=== PATIENT | female | born 1950 | race Caucasian/White ===

== ENCOUNTER 2016-11-11 18:39 | Emergency (ER) | payer MEDICARE, OTHER ==
--- NOTE | ~2016-11-11 | CR229 ---
[facility] A Service of [facility] RADIOLOGY TEXT RESULTS PATIENT: IRLANDA WORLEY LOCATION: [place] : 50 UNIT #: [id number] AGE: [address]: Jone Phan MD SEX: F ORDER DR: [id number] [facility] [address] [place], [place] [address] [id number] MR#: [id number] Acc #: [id number] NAME: IRLANDA WORLEY : 1950 SEX: F STUDY DATE/TIME: 11/11/2016 17:06 UNIT: [facility] ROOM: STUDY DESCRIPTION: CR Shoulder Min 2 View Lt Attending Physician: Er Doctor Generic Referring Physician: Primary Care Physician No Ordering Physician: Jone Phan M.D. Primary Care Physician: No Primary Care Physician MEDICAL IMAGING REPORT This report is preliminary unless electronic signature is present EXAM Left shoulder 3 views, 11/11/2016 HISTORY Left shoulder pain status post fall today. FINDINGS 3 views of the left shoulder demonstrate a left humeral prosthesis. There is anterior inferior dislocation of the humeral component of the prosthesis relative to the glenoid. Additionally on the anterior view, there is an oblique fracture through the medial cortex of the proximal humeral diaphysis. The bones are osteopenic. The left acromioclavicular joint is intact. There is no soft tissue abnormality. IMPRESSION 1. Left humeral prosthesis. There is anterior inferior dislocation of the humeral component of the prosthesis relative to the glenoid. 2. On the anterior view there is an oblique nondisplaced fracture through the medial cortex of the proximal left humeral diaphysis. Dictated by... Harvey Huston M.D. THIS IS AN ELECTRONICALLY VERIFIED REPORT Harvey Huston M.D. at 11/12/2016 4:19 PM STONE/zina TD: 11/11/2016 23:59 JOB #: [id number] [facility] A Service of [facility] RADIOLOGY TEXT RESULTS PATIENT: IRLANDA WORLEY LOCATION: [place] : 50 UNIT #: [id number] AGE: [address]: Jone Phan MD SEX: F ORDER DR: MEDICAL IMAGING REPORT COPY
--- NOTE | ~2016-11-11 | CT71 ---
[facility] A Service of [facility] RADIOLOGY TEXT RESULTS PATIENT: IRLANDA WORLEY LOCATION: [facility] : 50 UNIT #: [id number] AGE: [address]: Jone Phan MD SEX: F ORDER DR: [id number] [facility] [address] [place], [place] [address] [id number] E MR#: [id number] Acc #: [id number] NAME: IRLANDA WORLEY : 1950 SEX: F STUDY DATE/TIME: 11/11/2016 16:50 UNIT: [facility] ROOM: STUDY DESCRIPTION: CT Head Wo Contrast Attending Physician: Er Doctor Angie Referring Physician: Primary Care Physician No Ordering Physician: Jone Phan M.D. Primary Care Physician: Primary Care Physician No MEDICAL IMAGING REPORT This report is preliminary unless electronic signature is present EXAM Head CT, 11/11 INDICATIONS Patient fell at home today before dialysis. Patient has subsequent headache and vomiting. Pain is 6/10. FINDINGS Axial images were obtained from the base to the vertex without contrast. Comparison made with 08/28/2015. This CT exam was performed with one or more of the following radiation dose reduction techniques: Automatic exposure control, adjustment of mA and/or kV according to patient size, and iterative reconstruction. Again seen is generalized atrophy. Ventricular size and configuration remain normal. No acute infarct or hemorrhage is seen and there are no masses. Atherosclerotic calcifications are present in the carotid siphons and vertebral arteries. There are no skull fractures. There is an incomplete posterior osseous ring of C1, which is presumably congenital or developmental. IMPRESSION No acute intracranial abnormality. No skull fracture. Dictated by... Braden Yanes Jr., M.D. THIS IS AN ELECTRONICALLY VERIFIED REPORT Braden Yanes Jr., M.D. at 11/12/2016 3:49 PM RLK/rosalba TD: 11/11/2016 22:49 [facility] A Service [facility] RADIOLOGY TEXT RESULTS PATIENT: IRLANDA WORLEY LOCATION: [facility] : 50 UNIT #: [id number] AGE: [address]: Jone Phan MD SEX: F ORDER DR: JOB #: [id number] MEDICAL IMAGING REPORT COPY
--- NOTE | ~2016-11-11 | CR72 ---
[facility] A Service of [facility] RADIOLOGY TEXT RESULTS PATIENT: IRLANDA WORLEY LOCATION: [facility] : 50 UNIT #: [id number] AGE: [address]: Jone Phan MD SEX: F ORDER DR: [id number] [facility] [address] [place], [place] [address] [id number] E MR#: [id number] Acc #: [id number] NAME: IRLANDA WORLEY : 1950 SEX: F STUDY DATE/TIME: 11/11/2016 17:06 UNIT: [facility] ROOM: STUDY DESCRIPTION: CR Chest Single View Portable Attending Physician: Er Doctor Generic Referring Physician: Primary Care Physician No Ordering Physician: Jone Phan M.D. Primary Care Physician: No Primary Care Physician MEDICAL IMAGING REPORT This report is preliminary unless electronic signature is present EXAM Portable chest, 11/11/2016 HISTORY Chest pain and shortness of breath status post fall today. Benign essential hypertension. FINDINGS The heart is normal in size. Thoracic aorta is minimally calcified. Exam is somewhat limited by patient rotation. There is discoid atelectasis at the lung bases with poor inspiratory result. The lungs are otherwise clear. There are no pleural effusions. Left shoulder dislocation is better demonstrated on the plain film radiographs of the left shoulder. IMPRESSION 1. No active pulmonary disease. 2. Left shoulder dislocation is better demonstrated on the plain film radiographs of the left shoulder. Dictated by... Harvey Huston M.D. THIS IS AN ELECTRONICALLY VERIFIED REPORT Harvey Huston M.D. at 11/12/2016 4:19 PM KRT/zina TD: 11/12/2016 00:01 JOB #: [id number] MEDICAL IMAGING REPORT COPY
--- NOTE | ~2016-11-11 | CR156 ---
[facility] A Service of [facility] RADIOLOGY TEXT RESULTS PATIENT: IRLANDA WORLEY LOCATION: [facility] : 50 UNIT #: [id number] AGE: [address]: HANNAH Adams Doctor SEX: F ORDER DR: [id number] [facility] [address] [place], [place] [address] [id number] E MR#: [id number] Acc #: [id number] NAME: IRLANDA WORLEY : 1950 SEX: F STUDY DATE/TIME: 11/11/2016 19:08 UNIT: [facility] ROOM: STUDY DESCRIPTION: CR Humerus Min 2 View Lt Attending Physician: Er Doctor Angie Referring Physician: Primary Care Physician No Ordering Physician: Jone Phan M.D. Primary Care Physician: Primary Care Physician No MEDICAL IMAGING REPORT This report is preliminary unless electronic signature is present EXAM Left humerus, 11/11/2016 INDICATIONS 66-year-old female with pain and weakness, cannot mote the arm, fell today. TECHNIQUE 2 views of the left humerus. No comparisons. FINDINGS The patient is status post total left shoulder replacement. The appearance is abnormal, demonstrating apparent dislocation of the humeral component from the bony glenoid component. The bones are osteoporotic. No distinct humerus fracture identified. There is degenerative change of the AC joint. IMPRESSION 1. Abnormal examination demonstrating an apparent dislocation of the humeral component from the bony glenoid component of the shoulder arthroplasty appliances. No humerus fracture identified. STAT * RESULT Dictated by... Tom Escobar M.D. THIS IS AN ELECTRONICALLY VERIFIED REPORT Tom Escobar M.D. at 11/11/2016 11:27 PM AIDA/rosalba TD: 11/11/2016 20:42 [facility] A Service of [facility] RADIOLOGY TEXT RESULTS PATIENT: IRLANDA WORLEY LOCATION: [facility] : 50 UNIT #: [id number] AGE: [address]: Angie, HANNAH Doctor SEX: F ORDER DR: JOB #: [id number] MEDICAL IMAGING REPORT COPY
--- NOTE | ~2016-11-11 | EKG ---
PATIENT: IRLANDA WORLEY UNIT #: [id number] Ventricular Rate: 65 BPM Atrial Rate: 65 BPM P-R Interval: 180 ms QRS Duration: 112 ms Q-T Interval: 432 ms QTC Calculation(Bezet): 449 ms P [place]: 29 degrees Calculated R [place]: 18 degrees Calculated T [place]: 37 degrees Diagnosis Line: Normal sinus rhythm Diagnosis Line: Low voltage QRS Diagnosis Line: Non-specific intra-ventricular conduction delay Diagnosis Line: Borderline ECG Diagnosis Line: When compared with ECG of 04-SEP-2016 11:11, Diagnosis Line: No significant change was found Diagnosis Line: Confirmed by DILMA HARDEN MD ([id number]) on Diagnosis Line: 11/12/2016 11:53:50 AM INTERPRETING CHAYA PIERCE
[2016-11-11 16:53] LABS: BASOPHIL% 0.4 % (0-2.5); EOSINOPHIL% 0.5 % (0.0-7.0); HEMATOCRIT 27.9 % (35.0-45.0); HEMOGLOBIN 9.3 gm/dL (12.0-16.0); LYMPHOCYTE# 1.3 X10e3 (1.0-3.5); LYMPHOCYTE% 15.4 % (17.0-45.0); MEAN CELL VOLUME 91.4 FL (83-96); MEAN CORPUSCULAR HEMOGLOBIN 30.3 PG (28-34); MEAN CORPUSCULAR HGB CONC 33.2 g/dL (30-36); MEAN PLATELET VOLUME 7.7 FL (6.5-11.5); MONOCYTE# 0.4 X10e3 (0-1.0); MONOCYTE% 4.2 % (3.0-12.0); NEUTROPHIL# 6.8 X10e3 (1.5-7.1); NEUTROPHIL% 79.5 % (40-75); PLATELET COUNT 289 X10e3 (140-420); RED BLOOD COUNT 3.05 X10e (3.90-5.30); RED CELL DISTRIBUTION WIDTH 14.7 % (11.0-15.5); WHITE BLOOD COUNT 8.5 X10e3 (4.0-10.5)
[2016-11-11 16:56] LABS: DIFF IND NO
[2016-11-11 17:05] LABS: POC - CKMB 6.6 ng/mL (0.0-7.9); POC - TROPONIN <0.05 ng/mL (<=0.05)
[2016-11-11 17:09] LABS: PARTIAL THROMBOPLASTIN TIME 32.4 SECONDS (23.5-31.3); PROTHROMBIN TIME (PATIENT) 10.1 SECONDS (9.6-11.5)
[2016-11-11 17:17] LABS: BILIRUBIN, DIRECT 0.1 mg/dL (0.0-0.2); BILIRUBIN,INDIRECT 0.3 mg/dL (0.0-0.9); BILIRUBIN,TOTAL 0.4 mg/dL (0.2-2.0); BUN/CREATININE RATIO 13.81; CALCIUM SERUM 8.6 mg/dL (8.4-10.2); CREATININE SERUM 5.5 mg/dL (0.6-1.4); GLOM FILT RATE Estimated 8.2 mL/min (>60); POTASSIUM 4.8 mmol/L (3.5-5.1); PROTEIN TOTAL SERUM 7.1 g/dL (6.0-8.3)
[~2016-11-11 18:39] MED LIST: AMITRIPTYLINE100 MG PO; ASPIRIN PO; KEFLEX500 M1 PO; LASIX80 MG PO; LEVEMIR SUBQ; LISINOPRIL20 MG PO; NEPHRO-VITE RX T1 M1 PO; NORCO1 TAB 10/3 PO; NOVOLOG100 U/ML; OMEPRAZOLE40 M1 PO; PERCOCET5/325 PO; REGLAN5 MG PO; RENAVIT TABLET0.8 MG PO; ZOFRAN PO; ZOLOFT100 MG PO
[2016-11-11 19:54] LABS: POC - CKMB 6.9 ng/mL (0.0-7.9); POC - TROPONIN <0.05 ng/mL (<=0.05)
== END 2016-11-11 21:00 | disposition home or self-care (01) ==
LOC: CED 18:39
PROVIDERS: Emergency Medicine
DX: S43.005A Unspecified dislocation of left shoulder joint, initial encounter (principal); E11.9 Type 2 diabetes mellitus without complications; I10 Essential (primary) hypertension; Z88.0 Allergy status to penicillin; Z88.5 Allergy status to narcotic agent; Z79.899 Other long term (current) drug therapy; W19.XXXA Unspecified fall, initial encounter; W01.0XXA Fall on same level from slipping, tripping and stumbling without subsequent striking against object, initial encounter; Y92.009 Unspecified place in unspecified non-institutional (private) residence as the place of occurrence of the external cause
CPT/HCPCS: 36415; 70450; 71010; 73030; 73060; 80048; 80076; 82553; 83690; 84484; 85025; 85610; 85730; 93005; 99284